=== PATIENT | male | born 1990 | race Asian ===

== ENCOUNTER 2019-02-21 09:13 | Observation (INO) | payer OTHER ==
[2019-01-23 09:42] VITALS: BMI 28.3
[2019-02-21] VITALS (31 sets, daily range): BP systolic 69–140; BP diastolic 39–92; PULSE 82–108; RESP 10–25; Ht 167.6 cm; Wt 81.4 kg
[~2019-02-21] VITALS: Ht 167.6 cm; Wt 81.4 kg
--- NOTE | 2019-02-21 10:31 | PREAC ---
Date/Time of Note Date/Time of Note DATE: 02/21/19 TIME: 10:29 Anesthesia Eval and Record Evaluation Time Pre-Procedure Interview DATE: 02/21/19 TIME: 10:29 Age 28 Sex male NPO: 8 hrs Preoperative diagnosis L3-4, L4-5 HNP Planned procedure L3-4, L4-5 microdiscectomy and decompression Past Medical History Past Medical History: Includes Cardio: Dyslipidemia Surgery & Anesthesia Issues No known issue Meds Anticoagulation: No Beta Mariah within 24 hr: No Reason Beta Mariah not given: Pt. not on B-Mariah No Active Prescriptions or Reported Meds Current Medications Lactated Ringer's 1,000 ml @ 25 mls/hr Q24H IV ; Start 02/21/19 at 10:30 Meds reviewed: Yes Allergies Coded Allergies: No Known Allergies (Verified Allergy, Unknown, 02/21/19) Allergies Reviewed: Yes Labs/Studies Labs Reviewed: Reviewed by anesthesiologist test: N/A Pre-procedure Exam Last vitals Vital Signs Date Temp Pulse Resp B/P (MAP) Pulse Ox O2 O2 Flow FiO2 Time Delivery Rate 02/21/19 98.4 94 16 125/92 99 Room Air 10:10 (103) Airway: Adequate mouth opening Mallampati: Mallampati I Teeth: Normal Lung: Normal Heart: Normal ASA Physical Status ASA physical status: 2 Emergency: None Planned Anesthetic General/MAC: ETT Planned Pain Management Parenteral pain med Pre-operative Attestations Prior to commencing anesthesia and surgery, the patient was re-evaluated, there was verification of: *The patient's identity *The results of appropriate recent lab work and preoperative vital signs *The above evaluation not changing prior to induction *Anesthetic plan, risk benefits, alternative and complications discussed with patient/family; questions answered; patient/family understands, accepts and wishes to proceed. MARTY CARD MD February 21, 2019 10:31
--- NOTE | 2019-02-21 10:51 | HPN ---
Date/Time of Note Date/Time of Note DATE: 02/21/19 TIME: 10:51 Interval H&P Admission Note Pt. seen H&P reviewed: No system changes MARIAM STATON MD February 21, 2019 10:51
[2019-02-21] MEDS ORDERED: BUPIVACAINE 0.25% (MPF) 30 ML INJ ONE (10:53)
[2019-02-21] MEDS ORDERED: HEPARIN 1000 UNITS/ML 10 ML INJ ONE (10:53)
[2019-02-21] MEDS ORDERED: FENTAnyl 50 MCG/ML VIAL ONE (10:53)
[2019-02-21] MEDS ORDERED: THROMBIN 5000 UNIT VIAL ONE (10:53)
[2019-02-21] MEDS ORDERED: POLYMYXIN/BACITRACIN 1L IRRIG ONE (10:53)
[2019-02-21] MEDS ORDERED: CA CHLORIDE 10% 10 ML SYRINGE ONE (10:53)
[2019-02-21] MEDS ORDERED: BUPIVACAINE 0.5%/EPI (SDV) 30 ML INJ ONE (10:53)
[2019-02-21] MEDS ORDERED: DIPHENHYDRAMINE 50 MG INJ IV PRN ×2 (11:30→15:00)
[2019-02-21] MEDS ORDERED: HYDROmorphONE 1 MG/5 ML IV SYRINGE IV PRN ×3 (11:30)
[2019-02-21] MEDS ORDERED: ONDANSETRON 4 MG INJ IV PRN ×2 (11:30→15:00)
[2019-02-21] MEDS ORDERED: MIDAZOLAM 1 MG/ML 2 ML INJ IV PRN (11:30)
[2019-02-21] MEDS ORDERED: METOCLOPRAMIDE 10 MG INJ IV PRN (11:30)
[2019-02-21] MEDS ORDERED: FENTAnyl 50 MCG/ML VIAL IV PRN ×3 (11:30)
[2019-02-21] MEDS ORDERED: MEPERIDINE 25 MG INJ IV PRN (11:30)
[2019-02-21] MEDS ORDERED: OXYCODONE/ACETAMINOPHEN (5/325) TAB PO PRN ×2 (11:30)
[2019-02-21] MEDS ORDERED: CEPASTAT LOZENGE MT PRN (15:00)
[2019-02-21] MEDS ORDERED: HYDROCODONE/APAP (5/325) TAB PO PRN ×2 (15:00)
[2019-02-21] MEDS ORDERED: ACETAMINOPHEN 325 MG TAB PO PRN (15:00)
[2019-02-21] MEDS ORDERED: PROCHLORPERAZINE 10 MG TAB PO PRN (15:00)
[2019-02-21] MEDS ORDERED: DIPHENHYDRAMINE 25 MG CAP PO PRN (15:00)
[2019-02-21] MEDS ORDERED: HYDROmorphONE 0.5 MG/0.5 ML SYG IV PRN ×2 (15:00→17:00)
[2019-02-21] MEDS ORDERED: CYCLOBENZAPRINE 10 MG TAB PO PRN (15:00)
[2019-02-21] MEDS ORDERED: CEFAZOLIN 1 GM/50 ML (PMX) 50 ML IVPB SCH (15:00)
[2019-02-21] MEDS ORDERED: NALOXONE (0.4 MG/ML) INJ IV PRN (15:00)
--- NOTE | 2019-02-21 15:24 | SIPON ---
Date/Time of Note Date/Time of Note [id number] DATE: 02/21/19 TIME: 14:43 Operative Report Preoperative Diagnosis L3-5 disc herniations Postoperative Diagnosis L3-5 calcified disc herniation Operation/Procedure Performed L3-5 decompression Calcified disc removal Repair of dural leak at L4-5 on the right side. Surgeon see signature line assistant community director Stacia Christy NP Anesthesia: general Estimated blood loss: 50 - 100 ml's Transfusion Required none Specimen L3-5 disc Grafts/Implants nushield Complications Incidental dural leak during procedure due to calcification of disc fragment adhered to thecal sac. Repaired with 6-0 prolene and DuraSeal. Discussed and explained briana family. High risk due to calcified large disc fragment and adhered to the dural sac. MARIAM STATON MD February 21, 2019 14:54
[2019-02-21] MEDS ORDERED: NALOXONE (0.4 MG/ML) INJ IV ONE (15:30)
--- NOTE | 2019-02-21 17:03 | PAC ---
Date/Time of Note Date/Time of Note DATE: 02/21/19 TIME: 17:03 Post-Anesthesia Notes Post-Anesthesia Note Last documented vital signs Vital Signs Date Temp Pulse Resp B/P (MAP) Pulse Ox O2 O2 Flow FiO2 Time Delivery Rate 02/21/19 82 15 127/71 100 Nasal 2.0 16:00 (89) Cannula 02/21/19 98.8 15:02 Activity: WNL Respiratory function: WNL Cardiovascular function: WNL Mental status: Baseline Pain reasonably controlled: Yes Hydration appropriate: Yes Nausea/Vomiting absent: Yes Comments BT: 98.8 MARTY CARD MD February 21, 2019 17:03
--- NOTE | 2019-02-21 17:19 | OPR ---
DATE OF OPERATION: 02/21/2019 PREOPERATIVE DIAGNOSIS: L3 to L4 and L4 to L5 central large disk herniations with lower extremity radiculopathy bilaterally. Right foot drop POSTOPERATIVE DIAGNOSIS: L3 to L4 and L4 to L5 calcified disk fragments causing significant central stenosis and lower extremity radiculopathy.Right foot drop OPERATION PERFORMED: 1. At L3 to L4 on the right side, I performed hemilaminectomy and partial foraminotomy for exposure of thecal sac and exiting and traversing nerve root and encountering a significant large calcified disk fragment which required increased complexity of decompression. 2. Increased complexity of calcified disk fragment utilizing pituitaries, Kerrisons and curettes to remove. 3. Evaluation of decompression of exiting L3 and traversing L4 nerve root. 4. L4 to L5 right-sided hemilaminectomy, partial foraminotomy and facetectomy. 5. Decompression of calcified large disk fragment at L4 to L5. 6. Evaluation of exiting L4 and traversing L5 nerve root. 7. Increased complexity due to calcified disk fragments of both levels adhere to the thecal sac with significant displacement of thecal sac. Added two hours to procedure. 8. Complication intraoperatively of dural leak which was repaired intraoperatively with 6-0 Prolene and DuraSeal at the conclusion to watertight seal on Valsalva maneuver 45 mmHg. 9. Cosmetic wound closure of 3 cm incision. 10. Use of intraoperative fluoroscopy for localization. 11. Use of intraoperative microscope for microdissection and microsurgical technique. 12. Use of intraoperative neuromonitoring for evaluation of nerve root function and spinal cord. 13. Epidural catheter injected into the epidural space of 4 mL of 0.25% Marcaine, 100 mcg of fentanyl and removal of catheter. SURGEON: Chele Ocampo MD SENIOR BENEFITS MANAGER: Stacia Christy NP ANESTHESIA: General. ESTIMATED BLOOD LOSS: 50 to 100 mL. TRANSFUSION: None. SPECIMENS: L3 to L4 and L4 to L5 disk material. GRAFT IMPLANTS: NuShield and DuraSeal. COMPLICATIONS: Incidental dural leak during procedure due to calcified disk fragments adhere to thecal sac requiring repair with 6-0 Prolene and DuraSeal. This was explained to the family that this is high risk due to the significant findings intraoperatively of calcified disk fragment. I discussed the complication intraoperatively as well as the repair and the postop plan for recovery. The patient's dural leak was repaired to a watertight seal with 6-0 Prolene and DuraSeal. BRIEF PREOPERATIVE HISTORY: The patient is a healthy young male of age 28, who presented with significant symptoms of bilateral lower extremity radiculopathy secondary to MRI findings of large disk herniations at L3 to L4 and L4 to L5. The patient was indicated for surgery as stated above due to the significant size of the disk herniation causing significant central stenosis and lower extremity symptoms that was not improving with conservative management. The patient understood the risks, benefits, alternatives and consented to surgery as stated above. OPERATION IN DETAIL: The patient brought to the operating room, placed under anesthesia by Dr. Bailey and was given 2 grams of Ancef. The patient was turned prone on the Henrique frame and all bony prominences were appropriately padded. Lumbar spine was prepped and draped in usual sterile fashion. Two spinal needles were placed for verification of proper incision line over L3 to L4 and L4 to L5. Once this was done, we started with our incision at the L3 to L4 and L4 to L5 level, subperiosteal dissection on the right side to the lamina of L3 and L4 and metal tool placement under the lamina of L4 for verification of proper incision and started the procedure for focusing our attention initially at L4 to L5 level. At this time, we performed a right-sided L4 laminectomy, right-sided L5 laminectomy, right-sided L4 to L5 facet osteotomy, removal of ligamentum flavum and partial facetectomy and foraminotomy. At this point, gently retracting the thecal sac noticing a very significant large calcified disk fragment adhered to the undersurface thecal sac. This required increased complexity secondary to this large calcified disk fragment adhered to the thecal sac increasing our surgical time by 2 hours due to an incidental dural leak during this procedure due to the retraction as well as a significant complex of removing the calcified disk fragment underlying the thecal sac. We gently retracted, but despite this still developed a 2 mm dural leak at the traversing nerve root at the L4 to L5 level on the right side. This was packed off with cottonoids and at the end of the procedure redirected our attention for repair. We entered into the disk space after removing calcified disk fragments with Kerrisons 2-0, 3-0 as well as using down pushing curettes to remove disk fragments. This was done as much as possible without risking further injury of nerve roots and further possibility of dural tears. I removed and tried to decompress above and below as much as possible and as safely as possible. Our attention was directed down to the L3 to L4 level where the same findings occurred with a very large calcified disk fragments after we entered the level with our pattern, partial facetectomy, foraminotomy and laminectomy. Again, gently retracting the thecal sac noting a large calcified disk fragments which was again removed in a similar fashion as L4 to L5 avoiding excessive retraction to avoid another dural leak which was not encountered at this level. Once concluding our maximum decompression as safely as possible, we started with our closing procedure. At the L4 to L5 level, we repaired the dural leak with 4-0 Prolene and augmented it with DuraSeal. This was verified properly sealed, previously placing the DuraSeal with a Valsalva maneuver 45 mmHg verifying no fluid leak it was to a watertight seal. DuraSeal was placed over that and then redirected our attention now to L3 to L4 level with an epidural catheter was injected in the epidural space, injected with 4 mL of 0.25% Marcaine, 100 mcg of fentanyl and removed the catheter. We placed DuraSeal over this open laminotomy site as well. Nushield was also used at both levels for purpose of adherence barrier. Once concluded with the procedure, the patient was taken to recovery room in stable condition, moving bilateral lower extremities. The patient will be admitted into the recovery area for postop evaluation and discharged home when appropriate. The patient was provided with antibiotics before discharge home as well as a prescription for pain medication and muscle relaxers. The patient is given instructions of no bending, lifting, twisting at home and light activities and follow up in the office in approximately 7 to 10 days. Dictated By: CHELE PRITCHARD/MAGDI Conf#: [id number] DID#: [id number] INEZ
[2019-02-21] MEDS: LACTATED RINGER'S 1,000 ML IV SCH ×2 (17:24→18:49)
[2019-02-22 00:10] VITALS: BP 119/72; PULSE 97; RESP 20
[2019-02-22 07:47] VITALS: BP 115/67; PULSE 87; RESP 18
[2019-02-22] MEDS ORDERED: DEXAMETHASONE 10 MG/ML 1 ML INJ IV ONE (08:30)
--- NOTE | 2019-02-22 14:24 | DS ---
Date/Time of Note Date/Time of Note DATE: 02/22/19 TIME: 14:23 Discharge Summary Admission/Discharge Info Admit Date/Time February 21, 2019 at 16:45 Discharge Date/Time 02/22 Discharge Diagnosis s/p L3-5 decompression Patient Condition: Good Consults none Procedures L3-5 decompression, dural repair Hx of Present Illness Right foot drop noted pre-op. continued post-op. Hospital Course Did well with PT, AFO for right foot ordered. Cane for dispo Follow-up Plan call Primary Care Provider n/1 Time spent on discharge: > 30 minutes Pending Labs Laboratory Tests Test 02/22/19 07:44 Lab Scanned Report REFERENCE LAB [id number] MARIAM STATON MD Feb 22, 2019 14:24
== END 2019-02-22 18:00 | disposition home or self-care (01) ==
LOC: SDS 09:13 → MS1 16:45 → SDS 16:45 → MS1 18:16
PROVIDERS: ADMIT Orthopaedic Surgery Orthopaedic Surgery of the Spine; ATTEND Orthopaedic Surgery Orthopaedic Surgery of the Spine
DX: M51.16 Intervertebral disc disorders with radiculopathy, lumbar region (principal); M48.061 Spinal stenosis, lumbar region without neurogenic claudication; M21.371 Foot drop, right foot
CPT/HCPCS: 63047; 63048; 72100; 86850; 86900; 86901; 86999; 88304; 97110; 97116; 97161; 97530; J0690; J1100; J1644; J3010; J7120; L1932; L2820; V2790; Z7500; Z7512; Z7610; G0378